=== PATIENT | male | born 1935 | race Caucasian/White ===

== ENCOUNTER 2020-03-04 04:59 | Inpatient (IN) ==
[2020-03-04] MEDS ORDERED: Ondansetron 4 MG/2 ML VIAL IVP PRN (07:48)
[2020-03-04] MEDS ORDERED: Naloxone 0.4 MG/ML INJ IVP PRN (07:48)
[2020-03-04] MEDS ORDERED: Acetaminophen 325 MG TABLET PO PRN (07:48)
[2020-03-04 09:49] LABS: Basophils % 0.4 %; Eosinophils % 2.7 %
[2020-03-04 09:50] LABS: Eosinophils # 0.2 K/mcL (0.0-0.6); Hematocrit 42.2 % (37.5-50.1); Hemoglobin 12.8 g/dL (12.9-16.9); Immature Granulocytes % 0.1 % (0-4); Immature Platelets 7.6 % (1.1-6.1); Lymphocytes # 1.9 K/mcL (0.6-4.6); Lymphocytes % 23.1 %; Mean Corpuscular HGB Conc 30.3 g/dL (31.6-35.5); Mean Corpuscular Hemoglobin 26.3 pg (28.0-33.3); Mean Corpuscular Volume 86.7 fL (83.0-100.0); Monocytes # 0.7 K/mcL (0.0-1.3); Monocytes % 8.3 %; Neutrophils # 5.3 K/mcL (1.6-8.9); Platelet Count 140 K/mcL (140-400); Red Blood Count 4.87 M/mcL (4.19-5.50); Red Cell Distribution Width 16.6 % (11.5-14.5); Segmented Neutrophils % 65.4 %; White Blood Count 8.1 K/mcL (4.3-11.1)
[2020-03-04 10:01] LABS: Magnesium 2.2 mg/dL (1.6-2.6); Potassium 3.9 mEq/L (3.5-5.1)
[2020-03-04 10:06] LABS: Troponin I 0.48 ng/mL (< 0.04)
[2020-03-04 10:10] LABS: Platelet Estimate Normal (Normal)
[2020-03-04] MEDS ORDERED: *HR* Heparin 5,000 UNIT/ML VIAL IVP ONE (10:31)
[2020-03-04] MEDS ORDERED: *HR* Heparin 5,000 UNIT/ML VIAL IVP PRN ×3 (10:31→19:40)
[2020-03-04] MEDS ORDERED: Heparin 25,000 UNIT/250 ML D5W 25,000 UNIT/250 ML IV.SOLN IVC SCH (10:45)
[2020-03-04 11:12] LABS: Hematocrit 41.9 % (37.5-50.1); Hemoglobin 12.7 g/dL (12.9-16.9); Mean Corpuscular HGB Conc 30.3 g/dL (31.6-35.5); Mean Corpuscular Hemoglobin 26.4 pg (28.0-33.3); Mean Corpuscular Volume 87.1 fL (83.0-100.0); Mean Platelet Volume 11.7 fL (9.4-12.4); Platelet Count 145 K/mcL (140-400); Red Blood Count 4.81 M/mcL (4.19-5.50); Red Cell Distribution Width 16.4 % (11.5-14.5); White Blood Count 7.3 K/mcL (4.3-11.1)
[2020-03-04 11:17] LABS: INR 1.3
[2020-03-04 11:36] LABS: Heparin anti-factor XA UFH 1.61 IU/mL (0.30-0.70)
[2020-03-04] MEDS ORDERED: Perflutren Lipid Microsphere 1.3 ML in 0.9 % Sodium Chloride 8.7 ML IVP ONE (13:58)
[2020-03-04] MEDS ORDERED: Aspirin 81 MG TAB.CHEW PO SCH (14:45)
[2020-03-04] MEDS: Metoprolol XL (24 HR) Succ 25 MG TAB.ER.24H PO SCH (14:55)
[2020-03-04 17:18] LABS: Heparin anti-factor XA UFH 1.36 IU/mL (0.30-0.70)
[2020-03-04 19:12] LABS: Activated Partial Thrombo Time 52.3 Seconds (26.0-36.0)
[2020-03-04] MEDS: *HR* Heparin 5,000 UNIT/ML VIAL IVP PRN (20:37)
[2020-03-04] MEDS: Heparin 25,000 UNIT/250 ML D5W 25,000 UNIT/250 ML IV.SOLN IVC SCH (20:38)
[2020-03-04] MEDS ORDERED: FERROUS GLUCONATE PO SCH (22:00)
[2020-03-05 02:45] LABS: Basophils % 0.6 %; Eosinophils # 0.7 K/mcL (0.0-0.6); Eosinophils % 9.2 %; Hematocrit 40.6 % (37.5-50.1); Hemoglobin 12.6 g/dL (12.9-16.9); Immature Granulocytes % 0.4 % (0-4); Lymphocytes # 1.6 K/mcL (0.6-4.6); Lymphocytes % 22.5 %; Mean Corpuscular Hemoglobin 27.2 pg (28.0-33.3); Mean Corpuscular Volume 87.5 fL (83.0-100.0); Mean Platelet Volume 12.9 fL (9.4-12.4); Monocytes # 0.8 K/mcL (0.0-1.3); Monocytes % 10.5 %; Neutrophils # 4.1 K/mcL (1.6-8.9); Platelet Count 143 K/mcL (140-400); Red Blood Count 4.64 M/mcL (4.19-5.50); Red Cell Distribution Width 16.6 % (11.5-14.5); Segmented Neutrophils % 56.8 %; White Blood Count 7.2 K/mcL (4.3-11.1)
[2020-03-05 02:59] LABS: Calcium 10.5 mg/dL (8.6-10.3); Magnesium 2.1 mg/dL (1.6-2.6); Potassium 3.9 mEq/L (3.5-5.1)
[2020-03-05] MEDS: *HR* Heparin 5,000 UNIT/ML VIAL IVP PRN (03:01)
[2020-03-05] MEDS: Aspirin Enteric Coated 81 MG Tablet PO SCH (07:43)
[2020-03-05] MEDS: Cholecalciferol (D-3) 1,000 UNIT (25MCG) TABLET PO SCH (07:43)
[2020-03-05] MEDS: Metoprolol XL (24 HR) Succ 25 MG TAB.ER.24H PO SCH (07:43)
[2020-03-05] MEDS: Isosorbide MONOnitrate (24 HR) 60 MG TAB.ER.24H PO SCH (07:43)
[2020-03-05] MEDS ORDERED: Metoprolol XL (24 HR) Succ 25 MG TAB.ER.24H PO SCH (09:00)
[2020-03-05] MEDS ORDERED: lisinopriL 5 MG TABLET PO SCH (09:00)
[2020-03-05] MEDS: Heparin 25,000 UNIT/250 ML D5W 25,000 UNIT/250 ML IV.SOLN IVC SCH (22:01)
[2020-03-06 01:42] LABS: Immature Granulocytes % 0.1 % (0-4); Red Cell Distribution Width 16.3 % (11.5-14.5)
[2020-03-06 01:44] LABS: Basophils # 0.1 K/mcL (0.0-0.2); Basophils % 0.7 %; Eosinophils # 0.9 K/mcL (0.0-0.6); Eosinophils % 11.4 %; Hematocrit 39.1 % (37.5-50.1); Hemoglobin 11.8 g/dL (12.9-16.9); Immature Platelets 7.9 % (1.1-6.1); Lymphocytes % 25.5 %; Mean Corpuscular HGB Conc 30.2 g/dL (31.6-35.5); Mean Corpuscular Hemoglobin 26.1 pg (28.0-33.3); Mean Corpuscular Volume 86.5 fL (83.0-100.0); Mean Platelet Volume 13.6 fL (9.4-12.4); Monocytes # 0.8 K/mcL (0.0-1.3); Monocytes % 10.5 %; Platelet Count 130 K/mcL (140-400); Red Blood Count 4.52 M/mcL (4.19-5.50); Segmented Neutrophils % 51.8 %; White Blood Count 7.6 K/mcL (4.3-11.1)
[2020-03-06 01:49] LABS: Lymphocytes # 1.9 K/mcL (0.6-4.6); Neutrophils # 3.9 K/mcL (1.6-8.9)
[2020-03-06 01:54] LABS: Potassium 3.9 mEq/L (3.5-5.1)
[2020-03-06] MEDS: Aspirin Enteric Coated 81 MG Tablet PO SCH (08:12)
[2020-03-06] MEDS: Metoprolol XL (24 HR) Succ 25 MG TAB.ER.24H PO SCH ×2 (08:12→20:31)
[2020-03-06] MEDS: Isosorbide MONOnitrate (24 HR) 60 MG TAB.ER.24H PO SCH (08:12)
[2020-03-06] MEDS: Cholecalciferol (D-3) 1,000 UNIT (25MCG) TABLET PO SCH (08:12)
[2020-03-06] MEDS ORDERED: Isosorbide MONOnitrate (24 HR) 30 MG TAB.ER.24H PO SCH (09:00)
[2020-03-06] MEDS ORDERED: Metoprolol XL (24 HR) Succ 25 MG TAB.ER.24H PO SCH (09:00)
[2020-03-07 02:53] LABS: Basophils % 0.5 %; Eosinophils # 0.9 K/mcL (0.0-0.6); Eosinophils % 11.6 %; Hematocrit 38.7 % (37.5-50.1); Immature Granulocytes % 0.3 % (0-4); Lymphocytes # 1.5 K/mcL (0.6-4.6); Lymphocytes % 19.5 %; Mean Corpuscular Hemoglobin 26.9 pg (28.0-33.3); Mean Corpuscular Volume 86.8 fL (83.0-100.0); Monocytes # 0.7 K/mcL (0.0-1.3); Monocytes % 9.6 %; Neutrophils # 4.5 K/mcL (1.6-8.9); Platelet Count 153 K/mcL (140-400); Red Blood Count 4.46 M/mcL (4.19-5.50); Red Cell Distribution Width 16.4 % (11.5-14.5); Segmented Neutrophils % 58.5 %; White Blood Count 7.7 K/mcL (4.3-11.1)
[2020-03-07 03:13] LABS: Calcium 10.5 mg/dL (8.6-10.3); Potassium 3.8 mEq/L (3.5-5.1)
[2020-03-07] MEDS: Apixaban 5 MG TABLET PO SCH ×2 (08:37→22:22)
[2020-03-07] MEDS: Metoprolol XL (24 HR) Succ 25 MG TAB.ER.24H PO SCH (08:38)
[2020-03-07] MEDS: Aspirin Enteric Coated 81 MG Tablet PO SCH (08:38)
[2020-03-07] MEDS: Cholecalciferol (D-3) 1,000 UNIT (25MCG) TABLET PO SCH (08:38)
[2020-03-07] MEDS: Isosorbide MONOnitrate (24 HR) 30 MG TAB.ER.24H PO SCH (08:38)
[2020-03-07 13:13] LABS: AFP Tumor Marker Non-Pregnant 3 ng/mL (0-9); Cancer Antigen-GI (CA 19-9) 10 U/mL (0-37)
[2020-03-07] MEDS ORDERED: Metoprolol XL (24 HR) Succ 25 MG TAB.ER.24H PO SCH (21:00)
[2020-03-08 01:28] LABS: Hematocrit 39.2 % (37.5-50.1); Hemoglobin 12.3 g/dL (12.9-16.9); Mean Corpuscular HGB Conc 31.4 g/dL (31.6-35.5); Mean Corpuscular Hemoglobin 27.4 pg (28.0-33.3); Mean Corpuscular Volume 87.3 fL (83.0-100.0); Mean Platelet Volume 12.2 fL (9.4-12.4); Platelet Count 162 K/mcL (140-400); Red Blood Count 4.49 M/mcL (4.19-5.50); Red Cell Distribution Width 16.5 % (11.5-14.5); White Blood Count 8.6 K/mcL (4.3-11.1)
[2020-03-08 01:47] LABS: Calcium 10.2 mg/dL (8.6-10.3); Potassium 3.9 mEq/L (3.5-5.1)
[2020-03-08] MEDS ORDERED: Furosemide 40 MG/4 ML VIAL IVP ONE (08:53)
[2020-03-08] MEDS ORDERED: Metoprolol XL (24 HR) Succ 25 MG TAB.ER.24H PO SCH (09:00)
[2020-03-08] MEDS ORDERED: Ranolazine 500 MG TAB.ER.12H PO SCH (09:00)
[2020-03-08] MEDS: Apixaban 5 MG TABLET PO SCH (09:26)
[2020-03-08] MEDS: Isosorbide MONOnitrate (24 HR) 30 MG TAB.ER.24H PO SCH (09:26)
[2020-03-08] MEDS: Aspirin Enteric Coated 81 MG Tablet PO SCH (09:27)
[2020-03-08] MEDS: Cholecalciferol (D-3) 1,000 UNIT (25MCG) TABLET PO SCH (09:28)
[2020-03-08 12:00] VITALS: BP 91/64
== END 2020-03-08 14:36 | disposition hospice, home (50) | DRG 280 ==
LOC: CDU → SUATTDRO 06:58 → 2ANU 08:38
PROVIDERS: ADMIT Pharmacist; ATTEND Internal Medicine